=== PATIENT | female | born 1995 | race Caucasian/White ===

== ENCOUNTER 2018-02-14 15:44 | Emergency (ER) | payer BC ==
[2018-02-14 16:23] LABS: KETONE, URINE AUTO RFX TRACE mg/dL (NEGATIVE); LEUKOCYTE ESTERASE UR AUTO RFX NEGATIVE (NEGATIVE); MUCUS, URINE RFX SMALL (NEGATIVE); NITRITE, URINE AUTO RFX NEGATIVE (NEGATIVE); RBC, URINE AUTO RFX 1 /HPF (0-3); SPECIFIC GRAVITY UR AUTO RFX 1.012 (1.002-1.035); SQUAM EPITHELIAL CELL UR AURFX 1 /HPF (0-6); WBC, URINE AUTO RFX 3 /HPF (0-3)
[2018-02-14 17:03] LABS: BASO % 0.1 % (0.0-1.0); EOS % 0.1 % (0.0-3.0); HEMATOCRIT 40.4 % (36.0-47.0); HEMOGLOBIN 13.6 g/dl (12.0-15.5); IMMATURE GRANULOCYTE % 0.5 % (0-3.0); LYMPH # 0.7 10^3/uL (1.5-6.5); LYMPH % 5.2 % (24.0-44.0); MEAN CORPUSCULAR HEMOGLOBIN 29.7 pg (27.0-33.0); MEAN CORPUSCULAR HGB CONC 33.7 g/dl (32.0-36.5); MEAN CORPUSCULAR VOLUME 88.2 fl (80.0-96.0); MONO # 0.7 10^3/uL (0.0-0.8); MONO % 5.2 % (0.0-5.0); NEUTROPHILS # 12.6 10^3/uL (1.8-7.7); NEUTROPHILS % 88.9 % (36.0-66.0); PLATELET COUNT, AUTOMATED 260 10^3/uL (150-450); RED BLOOD COUNT 4.58 10^6/uL (4.00-5.40); RED CELL DISTRIBUTION WIDTH 12.4 % (11.5-14.5); WHITE BLOOD COUNT 14.1 10^3/uL (4.0-10.0)
[2018-02-14] MEDS ORDERED: ISOVUE-370 76% 100ML VIAL (Q9967) As Ordered (17:06)
[2018-02-14 17:17] LABS: ANION GAP 8 MEQ/L (8-16); BLOOD UREA NITROGEN 10 MG/DL (7-18); CALCIUM LEVEL 8.4 MG/DL (8.5-10.1); CARBON DIOXIDE LEVEL 23 MEQ/L (21-32); CHLORIDE LEVEL 105 MEQ/L (98-107); CREATININE FOR GFR 0.78 MG/DL (0.55-1.30); GLOMERULAR FILTRATION RATE > 60.0 (>60); GLUCOSE, FASTING 88 MG/DL (70-100); SODIUM LEVEL 136 MEQ/L (136-145)
[2018-02-14] MEDS: AZITHROMYCIN 250 MG TAB PO (18:15)
[2018-02-14 20:51] LABS: CHLAMYDIA DNA AMPLIFICATION NEGATIVE (NEGATIVE); GC DNA AMPLIFICATION NEGATIVE (NEGATIVE)
== END 2018-02-14 18:43 | disposition home or self-care (01) ==
LOC: M ED 15:44
DX: N72 Inflammatory disease of cervix uteri (principal); T83.32XA Displacement of intrauterine contraceptive device, initial encounter; Y76.2 Prosthetic and other implants, materials and accessory obstetric and gynecological devices associated with adverse incidents; R11.10 Vomiting, unspecified; R10.9 Unspecified abdominal pain; F32.9 Major depressive disorder, single episode, unspecified; F41.9 Anxiety disorder, unspecified; Z88.0 Allergy status to penicillin; Z88.1 Allergy status to other antibiotic agents; Z88.2 Allergy status to sulfonamides
CPT/HCPCS: Q9967